=== PATIENT | male | born 2000 | race African-American/Black ===

== ENCOUNTER 2021-12-23 18:40 | Emergency (ER) | payer OTHER ==
[~2021-12-23] VITALS: Ht 177.8 cm; Wt 73.5 kg
[2021-12-23 21:35] LABS: GC DNA AMPLIFICATION NEGATIVE (NEGATIVE)
[2021-12-23] MEDS ORDERED: DOXYCYCLINE HYCLATE 100MG TABLET PO ONE (21:40)
[2021-12-23] MEDS ORDERED: DOXY-443 PO (21:47)
[2021-12-23 22:00] VITALS: BP 121/74
[2021-12-24] MEDS ORDERED: DOXY-443 PO (12:52)
== END 2021-12-23 22:01 | disposition home or self-care (01) ==
LOC: M ED 18:40
DX: N45.1 Epididymitis (principal); A74.9 Chlamydial infection, unspecified

== ENCOUNTER 2022-03-06 00:52 | Emergency (ER) | payer OTHER ==
[~2022-03-06] VITALS: Ht 177.8 cm; Wt 72.6 kg
[~2022-03-06 00:52] MED LIST: DOXY-443 PO
[2022-03-06] MEDS ORDERED: MORPHINE 2 MG/ML 1ML VIAL IV ONE (05:40)
[2022-03-06] MEDS ORDERED: ONDANSETRON 4MG/2ML VIAL IV ONE (05:40)
[2022-03-06 06:53] VITALS: BP 120/81
== END 2022-03-06 06:54 | disposition home or self-care (01) ==
LOC: M ED 00:52
DX: S00.83XA Contusion of other part of head, initial encounter (principal); S00.12XA Contusion of left eyelid and periocular area, initial encounter; Y04.8XXA Assault by other bodily force, initial encounter; Y92.410 Unspecified street and highway as the place of occurrence of the external cause; Y93.9 Activity, unspecified; Y99.9 Unspecified external cause status
CPT/HCPCS: 70450; 70486; 72125; 96374; 96375; 99283; J2270; J2405